=== PATIENT | female | born 1985 | race Caucasian/White ===

== ENCOUNTER → 2020-10-16 | Outpatient (CLI) | payer OTHER ==
[~2020-10-16] MED LIST: ALAVERT D-12 HO1 T12 PO; IRON PO; MACROBID100 M1 PO; MULTIVITAMIN PO; VICO75300 PO; VITAMIN D31000 IU PO; ZITHROMAX Z PA250 MG PO
== END | disposition home or self-care (01) ==
LOC: COVID19 12:11
PROVIDERS: ATTEND Internal Medicine
DX: U07.1 COVID-19 (principal)

== ENCOUNTER → 2021-04-07 | Outpatient (CLI) | payer OTHER | END | disposition home or self-care (01) | LOC: COVID19 11:03 | PROVIDERS: ATTEND Pediatrics | DX: Z20.822 Contact with and (suspected) exposure to COVID-19 (principal) ==

== ENCOUNTER 2024-07-14 19:31 | Emergency (ER) | payer BC, MEDICAID ==
[~2024-07-14] VITALS: Ht 162.5 cm; Wt 59.0 kg
[2024-07-14] MEDS ORDERED: SODIUM CHLORIDE 0.9% 1,000 ML IV ONE (20:05)
[2024-07-14] MEDS ORDERED: Ondansetron Hydrochloride 4 MG/2 ML VIAL IV ONE (20:05)
[2024-07-14 20:15] LABS: BASO # 0.1 10*3/uL (0.0-0.1); BASO % 1.2 % (0.0-1.0); EOS # 0.1 10*3/uL (0.0-0.4); EOS % 1.2 % (1.0-4.0); HEMATOCRIT 42.6 % (37.0-47.0); LYMPH # 3.1 10*3/uL (1.3-4.4); LYMPH % 34.8 % (27.0-41.0); MEAN CELL VOLUME 95.5 fl (81.0-99.0); MEAN CORPUSCULAR HGB 32.3 pg (27.0-31.0); MEAN CORPUSCULAR HGB CONC 33.8 g/dl (33.0-37.0); MEAN PLATELET VOLUME 9.3 fl (9.6-12.3); MONO # 0.9 10*3/uL (0.1-1.0); MONO % 9.9 % (3.0-9.0); NEUT # 4.7 10*3/uL (2.3-7.9); NEUT % 52.7 % (47.0-73.0); PLATELET COUNT AUTOMATED 237 10*3/uL (130-400); RED BLOOD COUNT 4.46 10*6/uL (4.10-5.10); WHITE BLOOD COUNT 8.9 10*3/uL (4.8-10.8)
[2024-07-14] MEDS ORDERED: Pantoprazole Sodium 40 MG VIAL IV ONE (20:15)
[2024-07-14] MEDS ORDERED: Water, Sterile 10 ML VIAL ONE (20:29)
[2024-07-14 20:34] LABS: ACT PARTIAL THROMBO TIME 32.5 SECONDS (20.0-32.1)
[2024-07-14 20:38] LABS: ALKALINE PHOSPHATASE 104 U/L (46-116); BUN 8 mg/dl (9-23); CHLORIDE 103 mmol/L (98-107); LIPASE 50 U/L (12-53); POTASSIUM 3.8 mmol/L (3.4-5.1); SGPT/ALT 180 U/L (5-49); TOTAL PROTEIN 6.3 gm/dL (6.0-8.0)
[2024-07-14] MEDS ORDERED: IOHEXOL 300 MG/ML 100 ML VIAL IV ONE (21:15)
[2024-07-14] MEDS ORDERED: Metoclopramide Hydrochloride 10 MG/2 ML AMP IV ONE (22:30)
[2024-07-14] MEDS ORDERED: diphenhydrAMINE hydrochloride 50 MG/ML VIAL IV ONE (22:30)
[2024-07-14] MEDS ORDERED: Ondansetron4 MG PO ×2 (23:30→23:35)
== END 2024-07-14 23:30 | disposition home or self-care (01) ==
LOC: ED 19:31
PROVIDERS: Nurse Practitioner Family
DX: R11.2 Nausea with vomiting, unspecified (principal); R74.01 Elevation of levels of liver transaminase levels; J45.909 Unspecified asthma, uncomplicated; Z88.8 Allergy status to other drugs, medicaments and biological substances; Z88.0 Allergy status to penicillin; Z88.2 Allergy status to sulfonamides; Z91.010 Allergy to peanuts; Z98.890 Other specified postprocedural states; Z87.891 Personal history of nicotine dependence